=== PATIENT | male | born 1935 | race African-American/Black ===

== ENCOUNTER 2022-07-28 15:36 | Emergency (ER) | payer MEDICARE, BC ==
[~2022-07-28] VITALS: Ht 185.4 cm; Wt 95.0 kg
[2022-07-28 15:38] VITALS: BP 130/75
[2022-07-28 16:47] LABS: BASOPHILS % 0.5 % (0.0-2.0); EOSINOPHILS % 3.4 % (0.0-5.0); HEMATOCRIT. 44.3 % (42.0-52.0); HEMOGLOBIN. 14.9 g/dL (14.0-18.0); LYMPHOCYTES % 19.2 % (20.0-50.0); MEAN CORPUSCULAR HEMOGLOBIN 30.9 pg (28.0-32.0); MEAN CORPUSCULAR VOLUME 91.5 fL (80.0-94.0); MEAN PLATELET VOLUME 9.1 fl (7.4-10.4); MONOCYTES % 10.3 % (2.0-8.0); NEUTROPHILS % 66.6 % (40.0-76.0); PLATELET 112 x1000/uL (130-400); RED BLOOD CELL COUNT 4.84 mill/uL (4.7-6.1); RED CELL DISTRIBUTION WIDTH 14.9 % (11.6-14.6)
[2022-07-28 16:54] LABS: CHLORIDE 104 mEq/L (98-107)
[2022-07-28 16:55] LABS: INR 1.1; PROTHROMBIN TIME 12.1 sec (9.6-11.0)
[2022-07-28 17:05] LABS: ETHANOL BLOOD < 10 mg/dL
[2022-07-28] MEDS ORDERED: ATORVASTATIN CALCIUM 40MG TABLET PO ONE (18:15)
[2022-07-28] MEDS ORDERED: ASPIRIN 325MG EC TABLET PO ONE (18:15)
== END 2022-07-28 18:21 | disposition left against medical advice (07) ==
LOC: ER 15:36
DX: R47.01 Aphasia (principal); I48.91 Unspecified atrial fibrillation; I48.92 Unspecified atrial flutter; I11.0 Hypertensive heart disease with heart failure; I50.9 Heart failure, unspecified; E11.9 Type 2 diabetes mellitus without complications; E78.00 Pure hypercholesterolemia, unspecified; Z95.0 Presence of cardiac pacemaker
CPT/HCPCS: 36415; 71045; 80053; 80320; 82962; 83880; 84484; 85025; 86850; 86900; 93005; 99285; G0480